=== PATIENT | male | born 1945 | race Caucasian/White ===

== ENCOUNTER 2020-06-06 08:02 | Emergency (ER) | payer MEDICARE, OTHER ==
[~2020-06-06 08:02] MED LIST: COLCHICINE0.6 MG PO; COLCRYS0.6 MG PO; INDOCIN CAP 2525 MG PO; NORCO 5-325 TA1 EACH PO; Voltaren Gel 1 % TOP
[2020-06-06 08:46] LABS: HEMOGLOBIN 14.7 gm/dl (14.0-17.5); RED BLOOD COUNT 4.82 M/UL (4.20-5.50); WHITE BLOOD COUNT 15.6 K/UL (4.5-11.0)
[2020-06-06 09:09] LABS: BUN/CREATININE RATIO 24 (0-10)
[2020-06-06] MEDS ORDERED: ZOFRAN ODT 4 MG4 MG SL ×2 (10:36→11:42)
[2020-06-06] MEDS ORDERED: COLCHICINE0.6 M1 PO (11:41)
== END 2020-06-06 11:40 | disposition home or self-care (01) ==
LOC: ER1 08:02
PROVIDERS: Physician Assistant
DX: K52.9 Noninfective gastroenteritis and colitis, unspecified (principal); Z88.0 Allergy status to penicillin
CPT/HCPCS: 80053; 81001; 83605; 85025; 96374; 99284; J2405; Q9967

== ENCOUNTER 2020-08-20 13:31 | Emergency (ER) | payer MEDICARE, OTHER ==
[~2020-08-20 13:31] MED LIST changes: +COLCHICINE0.6 M1 PO; +ZOFRAN ODT 4 MG4 MG SL
[2020-08-20 16:45] LABS: HEMOGLOBIN 14.2 gm/dl (14.0-17.5); RED BLOOD COUNT 4.63 M/UL (4.20-5.50); WHITE BLOOD COUNT 16.2 K/UL (4.5-11.0)
[2020-08-20 17:09] LABS: BUN/CREATININE RATIO 20 (0-10)
[2020-08-20] MEDS ORDERED: AZITHROMYCIN500 MG PO (18:48)
[2020-08-20] MEDS ORDERED: OMNICEF 300 MG300 MG PO (18:48)
== END 2020-08-20 18:59 | disposition home or self-care (01) ==
LOC: ER1 13:31
PROVIDERS: Emergency Medicine
DX: J18.9 Pneumonia, unspecified organism (principal); Z88.0 Allergy status to penicillin; Z20.822 Contact with and (suspected) exposure to COVID-19
CPT/HCPCS: 71046; 71260; 80053; 80307; 83880; 84439; 84443; 85025; 85610; 85730; 93005; 99285; Q9967; U0002

== ENCOUNTER 2020-08-22 11:24 | Emergency (ER) | payer MEDICARE, OTHER ==
[~2020-08-22 11:24] MED LIST changes: +AZITHROMYCIN500 MG PO; +OMNICEF 300 MG300 MG PO
[2020-08-22] MEDS ORDERED: DOXYCYCLINE HY100 M2 PO (12:31)
[2020-08-22] MEDS ORDERED: ZYRTEC10 M3 PO (12:31)
[2020-08-22] MEDS ORDERED: PREDNISONE 20 M20 MG PO (12:31)
== END 2020-08-22 13:10 | disposition home or self-care (01) ==
LOC: ER1 11:24
DX: L50.0 Allergic urticaria (principal); T36.95XA Adverse effect of unspecified systemic antibiotic, initial encounter; J18.9 Pneumonia, unspecified organism; Z88.0 Allergy status to penicillin
CPT/HCPCS: 99283